=== PATIENT | female | born 1955 | race Caucasian/White ===

== ENCOUNTER 2017-11-19 08:15 | Emergency (ER) | payer SELFPAY ==
[2017-11-19 08:21] VITALS: BP 118/80; PULSE 76; RESP 16; TEMP 98.2; O2SAT 97
--- NOTE | 2017-11-19 08:49 | EDPHY ---
H & P Stated Complaint: L neck pain since last debbie;alleviated w/tylenol;no known inj Time Seen by Provider: 11/19/17 08:48 HPI/ROS: HPI: This is a 62-year-old female who presents with Chief Complaint: L neck pain since last debbie;alleviated w/tylenol;no known inj Location: Left side of neck/left upper shoulder Quality: Muscle spasms Duration: Woke up this morning like that approximately 1-3 hours prior to arrival Signs and Symptoms: No bleeding, no radiation, no numbness, no weakness, no tingling, no incontinence, + decreased range of motion, no swelling, + pain, no sore throat, no ear pain, no fever, no headache Timing: Acute Severity: [id number] Context: Patient is generally healthy, moving to the [place] from [place] and has no primary care provider, reports that she has left-sided neck stiffness and decreased range of motion upon waking up this morning. She denies any trauma/systemic signs like fever or sore throat. She reports that she is under lot of stress and may have even slept funny last night. Right- hand dominant. She took Tylenol this morning with moderate improvement in symptoms. She reports that her neck is "fixed to the right side" with decreased range of motion towards the left. She reports she has no history of cervical neck pain or degenerative changes prior to this incident. Denies LOC/ head injury/neck pain/dizziness/nausea/vomiting/amnesia. Modifying Factors: Tylenol with moderate relief Comment: ROS: see HPI Constitutional: No fever, no chills, no weight loss Eyes: No blurred vision Respiratory: No shortness of breath, no cough Cardiovascular: No chest pain Gastrointestinal: No nausea, no vomiting no diarrhea Genitourinary: No dysuria Extremities: No myalgias Neurologic: No weakness, no numbness Skin: No rashes Hematologic: No bruising, no bleeding MEDICAL/SURGICAL/SOCIAL HISTORY: Medical history: Generally healthy. Does not take any regular medications. Surgical history: Denies Social history: Retired. CONSTITUTIONAL: Extremely pleasant well-appearing adult female who appears younger than stated age, awake and alert, no obvious distress HEENT: Atraumatic and normocephalic. NECK: supple, no midline tenderness, moderate reproducible tenderness to palpation over the left posterior neck and left trapezius muscles with spasm present. flexion 45 degrees, extension 45 degrees, right lateral flexion 15 and left lateral flexion 5 secondary to stiffness and pain. No meningismus. Cardiovascular: Normal S1/S2, regular rate, regular rhythm, without murmur rub or gallop. PULMONARY/CHEST: Symmetrical and nontender. no crepitus. Clear to auscultation bilaterally. Good air movement. No accessory muscle usage. ABDOMEN: Soft, nondistended, nontender, no ecchymosis. EXTREMITIES: 2/2 pulses, strength 5/5, DIP/PIP/MCP flexion/extension intact with good light touch sensation. no deformities, no clubbing, no cyanosis or edema. NEUROLOGICAL: no focal neuro deficits. GCS 15. Light touch sensation intact. SKIN: Warm and dry, no erythema. no rash. Good capillary refill. Source: Patient Exam Limitations: No limitations - Personal History Current Tetanus Diphtheria and Acellular Pertussis (TDAP): Yes - Medical/Surgical History Other PMH: healthy per pt - Social History Smoking Status: Never smoked Constitutional: Initial Vital Signs Temperature (C) 36.8 C 11/19/17 08:16 Heart Rate 76 11/19/17 08:16 Respiratory Rate 16 11/19/17 08:16 Blood Pressure 118/80 11/19/17 08:16 O2 Sat (%) 97 11/19/17 08:16 O2 Delivery Mode Room Air Allergies/Adverse Reactions: Penicillins Allergy (Intermediate, Verified 11/19/17 08:21) resp problem Home Medications: Medication Instructions Recorded Cyclobenzaprine [Flexeril 10 MG 10 mg PO TID PRN #12 tab 11/19/17 (*)] Ibuprofen 800 mg PO Q8 PRN #20 tablet 11/19/17 oxyCODONE/APAP 5/325 [Percocet 1 - 2 tab PO Q4H PRN #10 tab 11/19/17 5/325 (*)] Medical Decision Making ED Course/Re-evaluation: Long discussion with patient who politely declines any imaging of her cervical area including x-ray or CT scan. No neurological deficits present. Patient is asking for primary care provider referral which 1 was provided for her. She politely declines any medications while in the emergency room and just prefers to have prescriptions and to go home and start them on her own. No signs of neurovascular compromise/tenting of skin/compartment syndrome/ extremities and joints examined above and below area of concern and are neurovascularly intact. This patient was seen under the supervision of my secondary supervising physician. I evaluated care for this patient independently. Differential Diagnosis: Differential diagnosis includes but is not limited to cervical spasm, lymphadenitis, acute myocardial infarction, carotid dissection, pulmonary infectious causes, strep throat, otitis media. Departure - Departure Disposition: Home, Routine, Self-Care Clinical Impression: Torticollis, spasmodic Condition: Good Instructions: Spasmodic Torticollis (ED) Additional Instructions: Take Tylenol 650 mg every 4 hours and/or Ibuprofen 800 mg every 8 hours with food as needed for pain. Use Percocet every 6 hours as needed for severe/break through pain. Do not use Tylenol and Percocet concomitantly. Use Flexeril every 8 hours as needed for muscle spasms. Establish care with Primary Care Provider. Return to the ER immediately if you experience new or worsening pain, discoloration, numbness, tingling, or any other symptoms that concerns you. Referrals: Yesica Menendez DO [Doctor of Osteopathy] - As per Instructions Prescriptions: Cyclobenzaprine [Flexeril 10 MG (*)] 10 mg PO TID PRN #12 tab PRN Reason: Spasms Ibuprofen 800 mg PO Q8 PRN #20 tablet PRN Reason: Pain, Mild oxyCODONE/APAP 5/325 [Percocet 5/325 (*)] 1 - 2 tab PO Q4H PRN #10 tab PRN Reason: Pain, Severe
== END 2017-11-19 09:33 | disposition home or self-care (01) ==
DX: G24.3 Spasmodic torticollis (principal)